=== PATIENT | female | born 1985 | race Two or more races ===

== ENCOUNTER 2023-09-23 11:49 | Inpatient (IN) | payer MEDICAID, OTHER ==
[~2023-09-23] VITALS: Ht 160 cm; Wt 100.8 kg
[2023-09-23] MEDS: KETOROLAC TROMETH 60MG/2ML VIAL IM ONE (12:22)
[2023-09-23 12:26] LABS: Eosinophils # (auto) 0.1 10 ^3/uL (0-0.8); Lymphocytes # (auto) 1.8 10 ^3/uL (0.4-5.4); Monocytes # (auto) 0.5 10 ^3/uL (0-1.3); Neutrophils # (auto) 5.7 10 ^3/uL (1.6-8.6)
[2023-09-23 12:28] LABS: Basophils # (auto) 0 10 ^3/uL (0-0.2); Basophils % (auto) 0.5 % (0.0-2.0); Eosinophils % (auto) 0.8 % (0.0-7.0); Hematocrit 35.3 % (36.0-46.0); Hemoglobin 10.8 g/dL (12.2-16.2); Lymphocytes % (auto) 22.6 % (10.0-50.0); Mean Corpuscular Hemoglobin 22.2 pg (28.0-32.0); Mean Corpuscular Hgb Conc. 30.6 g/dL (32.0-36.0); Mean Corpuscular Volume 72.5 fL (80.0-100.0); Monocytes % (auto) 6.5 % (0.0-12.0); Neutrophils % (auto) 69.6 % (37.0-80.0); Red Blood Cells 4.88 10^6/uL (4.0-5.20); White Blood Cell 8.1 10^3/uL (4.4-10.8)
[2023-09-23 12:42] LABS: Chloride 106 mmol/L (98-107); Potassium 3.9 mmol/L (3.5-5.1); Sodium 140 mmol/L (136-145)
[2023-09-23 12:43] LABS: Anion Gap 6 (5-15); Carbon Dioxide 28 mmol/L (20-30)
[2023-09-23 12:44] LABS: Calcium 9.2 mg/dL (8.7-10.4)
[2023-09-23 12:48] LABS: BUN/Creatinine Ratio 12.5 (10.0-20.0); Blood Urea Nitrogen 10 mg/dL (9-23); Glucose 90 mg/dL (74-106)
[2023-09-23 12:49] LABS: Lipase 37 U/L (12-53)
[2023-09-23 15:49] LABS: Urine Bacteria NONE SEEN /hpf (None Seen); Urine Blood 3+ /uL (Negative); Urine Clarity CLOUDY (Clear); Urine Color Yellow (Yellow); Urine Mucus FEW (None Seen); Urine Protein, UAD 2+ (Negative); Urine Specific Gravity 1.025 (1.001-1.035); Urine WBC 451 /hpf (0 - 5); Urine WBC Clumps PRESENT /hpf (None Seen); Urine pH 6.5 (5.0-8.0)
[2023-09-23] MEDS ORDERED: NITR-87 PO (16:18)
[2023-09-23] MEDS: SODIUM CHLORIDE 0.9% 1,000 ML IV ONE ×2 (17:10→17:11)
[2023-09-23] MEDS: cefTRIAXone 1GM/50ML D5W 50 ML IV ONE (17:33)
[2023-09-23] MEDS ORDERED: ONDANSETRON HCL 4 MG/2 ML VIAL IV PRN (18:15)
[2023-09-23] MEDS ORDERED: DOCUSATE SOD 100 MG CAP PO PRN (18:15)
[2023-09-23] MEDS ORDERED: MORPHINE SULFATE INJ 2 MG/ml SYRG IV PRN (18:15)
[2023-09-23] MEDS: SODIUM CHLORIDE 0.9% 1,000 ML IV SCH (18:37)
[2023-09-23] MEDS: TAMSULOSIN HYDROCHLORIDE 0.4 MG CAP PO ONE (18:41)
[2023-09-23] MEDS: ONDANSETRON HCL 4 MG/2 ML VIAL IM ONE (19:00)
[2023-09-23] MEDS: MORPHINE SULFATE 4 MG/ML SYR/VIAL IM ONE (19:00)
[2023-09-24] MEDS: KETOROLAC TROMETH 30 MG/ML 1ML VIAL IV SCH
[2023-09-24 05:12] LABS: Albumin 3.4 g/dL (3.2-4.8); Alkaline Phosphatase 79 U/L (46-116); Anion Gap 6 (5-15); Aspartate Aminotransferase < 8 U/L (13-40); BUN/Creatinine Ratio 13.9 (10.0-20.0); Blood Urea Nitrogen 10 mg/dL (9-23); Calcium 8.1 mg/dL (8.7-10.4); Carbon Dioxide 24 mmol/L (20-30); Chloride 110 mmol/L (98-107); Glucose 88 mg/dL (74-106); Potassium 3.8 mmol/L (3.5-5.1); Sodium 140 mmol/L (136-145)
[2023-09-24 05:13] LABS: Basophils # (auto) 0.1 10 ^3/uL (0-0.2); Bilirubin, Total 0.3 mg/dL (0.2-1.0); Eosinophils # (auto) 0.1 10 ^3/uL (0-0.8); Hemoglobin 9.6 g/dL (12.2-16.2); Monocytes # (auto) 0.5 10 ^3/uL (0-1.3); Monocytes % (auto) 7.4 % (0.0-12.0); Neutrophils # (auto) 3.4 10 ^3/uL (1.6-8.6); Total Protein 5.6 g/dL (5.7-8.2)
[2023-09-24 05:16] LABS: Alanine Aminotransferase < 9 U/L (7-40)
[2023-09-24 05:17] LABS: Eosinophils % (auto) 1.9 % (0.0-7.0); Hematocrit 30.5 % (36.0-46.0); Lymphocytes # (auto) 2.4 10 ^3/uL (0.4-5.4); Lymphocytes % (auto) 37.7 % (10.0-50.0); Mean Corpuscular Hemoglobin 22.9 pg (28.0-32.0); Mean Corpuscular Hgb Conc. 31.5 g/dL (32.0-36.0); Mean Corpuscular Volume 72.7 fL (80.0-100.0); Red Blood Cells 4.19 10^6/uL (4.0-5.20); Red Cell Distribution Width 17.4 % (11.8-14.3); White Blood Cell 6.5 10^3/uL (4.4-10.8)
[2023-09-24] MEDS: POLYETHYLENE GLYCOL 17 GM PWDR PO SCH (10:00)
[2023-09-24] MEDS: cefTRIAXone 1GM/50ML D5W 50 ML IV ONE (13:48)
[2023-09-24 17:59] VITALS: BP 150/92; PULSE 106; RESP 18; RESP 20; TEMP 98.6; O2SAT 98
[2023-09-24] MEDS: TAMSULOSIN HYDROCHLORIDE 0.4 MG CAP PO SCH (18:30)
[2023-09-24 19:19] LABS: Hepatitis B Surface Antigen Negative (Negative)
[2023-09-24 19:41] LABS: Hepatitis C Antibody Negative (Negative)
[2023-09-24 21:00] VITALS: BP 138/83; PULSE 103; RESP 18; TEMP 98.6; O2SAT 100
[2023-09-25 01:00] VITALS: BP 151/97; PULSE 105; RESP 17; TEMP 98.5; O2SAT 99
[2023-09-25 05:00] VITALS: BP 145/92; PULSE 109; TEMP 98.9; O2SAT 98
[2023-09-25 05:40] LABS: Partial Thromboplastin Time 27.6 SEC (24.5-34.5); Prothrombin Time 10.5 sec (9.3-11.8)
[2023-09-25 08:47] VITALS: BP 141/97; PULSE 106; RESP 15; TEMP 98.6; O2SAT 98
[2023-09-25] MEDS: cefTRIAXone 1GM/50ML D5W 50 ML IV SCH (09:11)
[2023-09-25 13:00] VITALS: BP 146/94; PULSE 107; RESP 14; TEMP 98.5; O2SAT 98
[2023-09-25] MEDS ORDERED: fentaNYL CITRATE 100 MCG/2 ML VL ONE (17:05)
[2023-09-25] MEDS ORDERED: ONDANSETRON HCL 4 MG/2 ML VIAL ONE (17:07)
[2023-09-25] MEDS ORDERED: LIDOCAINE 2% (LOCAL ANESTH.) PF 5ml SDV ONE (17:07)
[2023-09-25] MEDS ORDERED: PROPOFOL 10 MG/ML 20 ML IV ONE (17:07)
[2023-09-25] MEDS ORDERED: ROCURONIUM 10MG/ML 10ML VIAL IV ONE (17:08)
[2023-09-25] MEDS ORDERED: MIDAZOLAM HCL 2MG/2ML 2ml VIAL (1mg/ml) ONE (17:14)
[2023-09-25] MEDS ORDERED: NEOSTIGMINE 1 MG/ML INJ (10mg/10ML VIAL) ONE (18:08)
[2023-09-25] MEDS ORDERED: GLYCOPYRROLATE 0.2 MG/ML 1ML VIAL ONE (18:08)
[2023-09-25 18:09] VITALS: O2SAT 97
[2023-09-25] MEDS ORDERED: ONDANSETRON HCL 4 MG/2 ML VIAL IV PRN (18:30)
[2023-09-25] MEDS ORDERED: HYDROmorphone HCL 2 MG/ML VL/or syr IV PRN (18:30)
[2023-09-25] MEDS ORDERED: HYDROmorphone HCL 2 MG/ML VL/or syr ONE (18:45)
[2023-09-25] MEDS: HYDROmorphone HCL 2 MG/ML VL/or syr IV PRN (18:48)
[2023-09-25 22:50] VITALS: BP 149/90; PULSE 93; RESP 17; TEMP 97.7; O2SAT 100
[2023-09-26] VITALS (7 sets, daily range): BP systolic 125–155; BP diastolic 75–103; PULSE 73–113; RESP 18–20; TEMP 97.8–98.5; O2SAT 90–98
[2023-09-26] MEDS ORDERED: CIPR-173 PO (09:00)
[2023-09-26] MEDS ORDERED: TRAM50TA2 PO (09:00)
== END 2023-09-26 17:30 | disposition home or self-care (01) | DRG 466 ==
LOC: ER 11:49 → OVERFLOW 18:11 → CENTRAL 09-24 17:50
PROVIDERS: ADMIT Nurse Practitioner Family; ATTEND Family Medicine
PROC: 0TJB8ZZ Inspection of Bladder, Via Natural or Artificial Opening Endoscopic (ICD-10-PCS; 2023-09-24)
PROC: 0TJ58ZZ Inspection of Kidney, Via Natural or Artificial Opening Endoscopic (ICD-10-PCS; 2023-09-25)
PROC: 0TJ98ZZ Inspection of Ureter, Via Natural or Artificial Opening Endoscopic (ICD-10-PCS; 2023-09-25)
PROC: 0TP98DZ Removal of Intraluminal Device from Ureter, Via Natural or Artificial Opening Endoscopic (ICD-10-PCS; principal; 2023-09-25 17:07)
DX: T83.592A Infection and inflammatory reaction due to indwelling ureteral stent, initial encounter (principal); A41.9 Sepsis, unspecified organism; T83.89XA Other specified complication of genitourinary prosthetic devices, implants and grafts, initial encounter; N13.6 Pyonephrosis; N99.71 Accidental puncture and laceration of a genitourinary system organ or structure during a genitourinary system procedure; D64.9 Anemia, unspecified; K59.00 Constipation, unspecified; K42.9 Umbilical hernia without obstruction or gangrene; K57.30 Diverticulosis of large intestine without perforation or abscess without bleeding; E86.0 Dehydration; Y92.238 Other place in hospital as the place of occurrence of the external cause; Y83.8 Other surgical procedures as the cause of abnormal reaction of the patient, or of later complication, without mention of misadventure at the time of the procedure; Z87.442 Personal history of urinary calculi
CPT/HCPCS: 36415; 74018; 74176; 76000; 80048; 80053; 81001; 82360; 83690; 84702; 85025; 85610; 85730; 86803; 86850; 86900; 86901; 87040; 87086; 87340; G0378; J1885; J2001; J2250; J2405; J2704